=== PATIENT | female | born 1980 | race Caucasian/White ===

== ENCOUNTER 2017-06-13 09:44 | Emergency (ER) | payer BC ==
[~2017-06-13] VITALS: Ht 165.1 cm; Wt 78.0 kg
[2017-06-13 09:58] VITALS: BP 119/78
--- NOTE | 2017-06-13 10:09 | NUR ---
PATIENT PRESENTS TO ED WITH VAGINAL BLEEDING, LOWER ABDOMINAL CRAMPING SINCE LAST NIGHT; 8 PADS USED SINCE LAST NIGHT; LMP 03/25/17;G-5 P-4;DENIES DIZZINESS AT THIS TIME; SKIN IS PINK/WARM/DRY; AAOX4 WITH EVEN AND STEADY GAIT; LUNGS CLEAR BL; HR EVEN AND REGULAR; PT DENIES ANY FEVER, CP, SOB, OR COUGH AT THIS TIME; PATIENT STATES PAIN OF 6/10 AT THIS TIME; PATIENT POSITIONED FOR COMFORT; HOB ELEVATED; BEDRAILS UP X2; BED DOWN. ER MD MADE AWARE OF PT STATUS.
--- NOTE | 2017-06-13 10:23 | NUR ---
US AT BEDSIDE.
--- NOTE | 2017-06-13 10:26 | NUR ---
PT IS 10 WEEKS ;
[2017-06-13 10:31] LABS: BASOPHILS # (AUTO) 0.4 K/uL (0.00-0.22); EOSINOPHILS # (AUTO) 0.3 K/uL (0-0.4); EOSINOPHILS % (AUTO) 2.9 % (0.0-4.0); HEMATOCRIT 47.2 % (36-48); HEMOGLOBIN 15.3 g/dL (12.0-16.0); LYMPHOCYTES # (AUTO) 1.8 K/uL (2.5-16.5); LYMPHOCYTES % (AUTO) 16.9 % (20.5-51.1); MEAN CORPUSCULAR HEMOGLOBIN 28 pg (27-31); MEAN CORPUSCULAR HGB CONC 33 g/dL (33-37); MEAN CORPUSCULAR VOLUME 85 fL (80-94); MONOCYTES # (AUTO) 0.8 K/uL (0.8-1.0); MONOCYTES % (AUTO) 7.4 % (1.7-9.3); NEUTROPHILS # (AUTO) 7.6 K/uL (1.8-7.7); NEUTROPHILS % (AUTO) 68.8 % (42.2-75.2); PLATELET COUNT (AUTO) 232 K/uL (140-450); RED BLOOD CELL COUNT(AUTO) 5.56 MIL/uL (4.20-5.40); RED CELL DISTRIBUTION WIDTH 13.9 % (11.6-13.7); WHITE BLOOD COUNT (AUTO) 10.9 K/uL (4.8-10.8)
[2017-06-13 10:50] LABS: ALBUMIN 4.1 g/dL (3.4-5.0); ANION GAP 9.8 (8-16); CREATININE 0.6 mg/dL (0.6-1.3); POTASSIUM 3.8 mmol/L (3.5-5.1); TOTAL BILIRUBIN 0.6 mg/dL (0.0-1.0)
[2017-06-13 11:19] VITALS: BP 121/77
--- NOTE | 2017-06-13 11:19 | NUR ---
Patient discharged with v/s stable. Written and verbal after care instructions given and explained. Patient verbalized understanding. Ambulatory with steady gait. All questions addressed prior to discharge. Advised to follow up with PMD.
== END 2017-06-13 11:19 | disposition home or self-care (01) ==
LOC: MED 09:44
DX: O46.91 Antepartum hemorrhage, unspecified, first trimester (principal); O09.521 Supervision of elderly multigravida, first trimester; Z3A.00 Weeks of gestation of pregnancy not specified
CPT/HCPCS: 36415; 76801; 80053; 81025; 84702; 85025; 86900; 86901; 99285; Q0092